=== PATIENT | male | born 1995 | race Caucasian/White ===

== ENCOUNTER 2017-05-06 12:51 | Emergency (ER) | payer BC ==
[~2017-05-06] VITALS: Ht 180.3 cm; Wt 69.2 kg
[2017-05-06 12:53] VITALS: TEMP 36.7; Ht 180.3 cm; Wt 69.2 kg
[2017-05-06] MEDS ORDERED: SODIUM CHLORIDE 0.9% 1000ML 1,000 ML IV STA (13:07)
[2017-05-06] MEDS ORDERED: ONDANSETRON INJ 2 MG/ML 2 ML VIAL IV STA (13:07)
[2017-05-06] MEDS ORDERED: KETOROLAC TROMETHAMINE 30 MG/ML VIAL IV STA (13:07)
--- NOTE | 2017-05-06 13:07 | EMERGENCY ROOM VISIT NOTE ---
History Report prepared by Binibchapis: Calli Hargrove Under the Supervision of: Dr. Lito Perez M.D. First contact with patient: 12:56 Chief Complaint: VOMITING Stated Complaint: VOMITING FOR 3 DAYS Nursing Triage Summary: vomiting started sunday night headache no diarrhea History of Present Illness The patient is a 22 year old white male with a limited past medical history of who presents to the ED with a cc of persistent vomiting beginning 3 days LIQUEFIED [employer]ROLE[employer] GASF[employer]. Positive headache, nausea, abdominal pain. Negative cough, diarrhea, urinary symptoms, recent sick contacts, recent falls. He has eaten no strange or unusual foods recently. His last BM was yesterday and normal. He has been trying to stay hydrated but admits he hasn't been tolerating PO intake well because of his symptoms. The patient notes he was in [place] for spring, and came home just over 1 week ago. He admits to drinking large amounts of alcohol while he was on [place], but states he has not drank since he's been home. Source of History: patient Onset: 3 days LIQUEFIED [employer]ROLE[employer] Position: abdomen Timing: other (persistent) Associated Symptoms: + headache, + nausea, + abdominal pain, No cough, No diarrhea, No urinary symptoms Review of Systems See HPI for pertinent positives and negatives. A total of ten systems were reviewed and were otherwise negative. Past Medical & Surgical Medical Problems: (1) No significant past medical history Social History Smoking Status: Never Smoker Alcohol Use: occasionally Drug Use: none Marital Status: single Housing Status: lives with roommate Occupation Status: [employer] student Current/Historical Medications Scheduled Famotidine (Pepcid), 20 MG PO BID Scheduled PRN Ondansetron Hcl (Zofran), 4 MG PO Q8H PRN for Nausea Allergies Coded Allergies: No Known Allergies (Unverified , 05/06/17) Physical Exam Vital Signs Date Time Temp Pulse Resp B/P (MAP) Pulse Ox O2 Delivery O2 Flow Rate FiO2 05/06/17 14:35 46 20 123/73 97 Room Air 05/06/17 12:53 36.7 54 20 151/88 95 Room Air Physical Exam GENERAL: Awake, alert, well-appearing, NAD, noted hoarse voice HENT: Normocephalic, atraumatic. Dry mucous membranes. EYES: Normal conjunctiva. Sclera non-icteric. NECK: Supple. No nuchal rigidity. FROM. RESPIRATORY: CTAB, no rhonchi, wheezing, crackles CARDIAC: RRR, no MRG ABDOMEN: Soft, NTND, BS+ MSK: No chest wall TTP, no LE edema NEURO: GCS 15, CN 2-12 intact, moves all 4s on command SKIN: No rash or jaundice noted. Medical Decision & Procedures Laboratory Results 05/06/17 13:17 Red Blood Count 5.41, Mean Corpuscular Volume 88.2, Mean Corpuscular Hemoglobin 31.6, Mean Corpuscular Hemoglobin Concent 35.8, Mean Platelet Volume 9.2, Neutrophils (%) (Auto) 70.4, Lymphocytes (%) (Auto) 16.5, Monocytes (%) (Auto) 12.1, Eosinophils (%) (Auto) 0.6, Basophils (%) (Auto) 0.2, Neutrophils # (Auto ) 7.03, Lymphocytes # (Auto) 1.65, Monocytes # (Auto) 1.21, Eosinophils # (Auto ) 0.06, Basophils # (Auto) 0.02 05/06/17 13:17 Test 05/06/17 13:11 05/06/17 13:17 05/06/17 14:05 Urine Color YELLOW Urine Appearance CLEAR (CLEAR) Urine pH 6.5 (4.5-7.5) Urine Specific [place] 1.011 (1.000-1.030) Urine Protein 1+ (NEG) Urine Glucose (UA) NEG (NEG) Urine Ketones TRACE (NEG) Urine Occult Blood NEG (NEG) Urine Nitrite NEG (NEG) Urine Bilirubin NEG (NEG) Urine Urobilinogen POS (NEG) Urine Leukocyte Esterase NEG (NEG) Urine WBC (Auto) 1-5 /hpf (0-5) Urine RBC (Auto) 0-4 /hpf (0-4) Urine Hyaline Casts (Auto) 0 /lpf (0-5) Urine Epithelial Cells (Auto) 5-10 /lpf (0-5) Urine Bacteria (Auto) NEG (NEG) White Blood Count 9.99 K/uL (4.8-10.8) Red Blood Count 5.41 M/uL (4.7-6.1) Hemoglobin 17.1 g/dL (14.0-18.0) Hematocrit 47.7 % (42-52) Mean Corpuscular Volume 88.2 fL (80-100) Mean Corpuscular Hemoglobin 31.6 pg (25-34) Mean Corpuscular Hemoglobin Concent 35.8 g/dl (32-36) Platelet Count 232 K/uL (130-400) Mean Platelet Volume 9.2 fL (7.4-10.4) Neutrophils (%) (Auto) 70.4 % Lymphocytes (%) (Auto) 16.5 % Monocytes (%) (Auto) 12.1 % Eosinophils (%) (Auto) 0.6 % Basophils (%) (Auto) 0.2 % Neutrophils # (Auto) 7.03 K/uL (1.4-6.5) Lymphocytes # (Auto) 1.65 K/uL (1.2-3.4) Monocytes # (Auto) 1.21 K/uL (0.11-0.59) Eosinophils # (Auto) 0.06 K/uL (0-0.5) Basophils # (Auto) 0.02 K/uL (0-0.2) RDW Standard Deviation 39.5 fL (36.4-46.3) RDW Coefficient of Variation 12.5 % (11.5-14.5) Immature Granulocyte % (Auto) 0.2 % Immature Granulocyte # (Auto) 0.02 K/uL (0.00-0.02) Anion Gap 8.0 mmol/L (3-11) Est Creatinine Clear Calc Drug Dose 83.4 ml/min Estimated GFR () 85.0 Estimated GFR (Non- 73.3 BUN/Creatinine Ratio 8.1 (10-20) Calcium Level 9.5 mg/dl (8.5-10.1) Total Bilirubin 0.8 mg/dl (0.2-1) Direct Bilirubin 0.2 mg/dl (0-0.2) Aspartate Amino Transf (AST/SGOT) 22 U/L (15-37) Alanine Aminotransferase (ALT/SGPT) 25 U/L (12-78) Alkaline Phosphatase 89 U/L (45-117) Total Protein 8.1 gm/dl (6.4-8.2) Albumin 4.1 gm/dl (3.4-5.0) Lipase 77 U/L (73-393) Influenza Type A Antigen Neg for Influ A (NEG) Influenza Type B Antigen Neg for Influ B (NEG) Laboratory results reviewed by me Medications Administered Medications (Trade) Dose Ordered Sig/Lety Route Start Time Stop Time Status Last Admin Dose Admin Sodium Chloride 1,000 ml @ 999 mls/hr Q1H1M STAT IV 05/06/17 13:07 05/06/17 14:07 DC 05/06/17 13:19 999 MLS/HR Ondansetron HCl (Zofran Inj) 4 mg NOW STAT IV 05/06/17 13:07 05/06/17 13:08 DC 05/06/17 13:18 4 MG Ketorolac Tromethamine (Toradol Inj) 30 mg NOW STAT IV 05/06/17 13:07 05/06/17 13:08 DC 05/06/17 13:18 30 MG Metoclopramide HCl (Reglan Inj) 10 mg NOW STAT IV. 05/06/17 14:07 05/06/17 14:08 DC 05/06/17 14:37 10 MG Diphenhydramine HCl (Benadryl Inj) 25 mg NOW STAT IV 05/06/17 14:07 05/06/17 14:08 DC 05/06/17 14:37 25 MG ED Course 1259: The patient was evaluated in room B2. A complete history and physical exam was performed. 1405: I reevaluated the patient. He is feeling better somewhat better but is still nauseous. We will administer more medications. 1440: I reevaluated the patient. He is feeling better and is ready to go home. I discussed his results and discharge instructions and he verbalized complete understanding and agreement. Medical Decision The patient is a 22 year old white male with a limited past medical history of who presents to the ED with a cc of persistent vomiting beginning 3 days LIQUEFIED [employer]. Triage Nursing notes reviewed. The patient's presentation and history were concerning for nausea, vomiting and abdominal pain. Differential diagnosis: Etiologies such as gastroenteritis, food borne illness, infections, appendicitis , diverticulitis, inflammatory bowel disease, obstruction, GI bleed, biliary pathology, as well as others were entertained. Patient was seen and evaluated the bedside. Patient had been complaining of some nausea, and vomiting. This has been persistent ongoing for approximately 3 days. Of note the patient did have a recent travel to [place] over spring. Patient had had alcohol during that time. No recent alcohol use. Patient denies any tobacco or drug use. Patient denies any foodborne illness and no trauma. Patient was complained of some mild headache but has a nonfocal neurologic exam and no signs of meningismus. I do not believe he needs an LP or CT of the brain at this time. Patient does not have any abdominal discomfort just not just nausea. Patient did have blood work completed along with symptom control. Patient's blood work fairly unremarkable. Patient does not have an elevated white blood cell count. Patient is not anemic. Patient has normal kidney function. Patient has normal LFTs and lipase. Urinalysis negative for infection. Upon reassessment the patient was feeling mildly improved. Patient was given additional medications for nausea. Patient was also given a p.o. challenge. Patient was able to tolerate his p.o. Patient did have a flu swab which is negative. Given the aforementioned there may be some gastritis. Flu negative. Patient was counseled on a bland diet, clear liquids, avoidance of alcohol, small portions, advancing his diet as tolerated, and avoiding spicy and citrus. Patient is a suitable for outpatient follow-up and treatment at this time. Patient was given strict follow-up, discharge, and return precautions. All questions were answered. Patient was deemed suitable for outpatient follow-up at this time. Patient agreed with the plan of care and was safely discharged home. Medication Reconcilliation Current Medication List: was personally reviewed by me Blood Pressure Screening Patient's blood pressure: Elevated blood pressure Blood pressure disposition: Elevated BP felt to be situational Impression Primary Impression: Vomiting Additional Impressions: Acute gastritis Hypokalemia Scribe Attestation The scribe's documentation has been prepared under my direction and personally reviewed by me in its entirety. I confirm that the note above accurately reflects all work, treatment, procedures, and medical decision making performed by me. Departure Information Dispostion Home / Self-Care Prescriptions Ondansetron Hcl (ZOFRAN) 4 Mg Tab 4 MG PO Q8H Y for Nausea, #15 TAB Prov: Lito Perez M.D. 05/06/17 Famotidine (PEPCID) 20 Mg Tab 20 MG PO BID for 7 Days, #14 TAB Prov: Lito Perez M.D. 05/06/17 Referrals No Doctor, Assigned (PCP) Patient Instructions Dehydration, ED Diet [place], ED PUD Vs Gastritis, Hypokalemia Alfredo, My [facility] Additional Instructions Please return to the emergency department if you have worsening or recurrent symptoms not amenable to at-home treatment. Please call for a follow-up appointment with her primary care physician. Please take your medications as prescribed. If you have other concerns and/or complaints please feel free to also call your primary care physician's office or return the ED for further evaluation, management, and treatment. He was please consider taking a Pepcid 20 mg twice daily. Please consider smaller meals. Please also consider a bland diet and avoiding things like spicy or citrus foods. Please avoid alcohol. Advance her diet as tolerated. Please follow-up at [facility] or with your PCP as needed. Return to the emergency department if you have worsening symptoms. You have been examined and treated today on an emergency basis only. This is not a substitute for, or an effort to provide, complete comprehensive medical care. It is impossible to recognize and treat all injuries or illnesses in a single emergency department visit. It is therefore important that you follow up closely with [facility], your PCP, and/or your specialist(s). Call as soon as possible for an appointment. Thank you for your time and consideration. I look forward to speaking with you again soon. Please don't hesitate to call us if you have any questions. Problem Qualifiers Primary Impression: Vomiting Vomiting type: unspecified Vomiting Intractability: non-intractable Nausea presence: with nausea Qualified Codes: R11.2 - Nausea with vomiting, unspecified Additional Impressions: Acute gastritis Gastritis type: unspecified gastritis Gastritis bleeding: presence of bleeding unspecified Qualified Codes: K29.00 - Acute gastritis without bleeding
[2017-05-06 13:44] LABS: BASO % 0.2 %; BASO ABS # 0.02 K/uL (0-0.2); EOS % 0.6 %; EOS ABS # 0.06 K/uL (0-0.5); HEMATOCRIT 47.7 % (42-52); HEMOGLOBIN 17.1 g/dL (14.0-18.0); IG# 0.02 K/uL (0.00-0.02); LYMPH % 16.5 %; LYMPH ABS # 1.65 K/uL (1.2-3.4); MEAN CELL VOLUME 88.2 fL (80-100); MEAN CORPUSCULAR HEMOGLOBIN 31.6 pg (25-34); MEAN CORPUSCULAR HGB CONC 35.8 g/dl (32-36); MEAN PLATELET VOLUME 9.2 fL (7.4-10.4); MONO % 12.1 %; MONO ABS # 1.21 K/uL (0.11-0.59); NEUT % 70.4 %; NEUT ABS # 7.03 K/uL (1.4-6.5); PLATELET COUNT 232 K/uL (130-400); RED CELL DISTRIBUTION WIDTH CV 12.5 % (11.5-14.5); RED CELL DISTRIBUTION WIDTH SD 39.5 fL (36.4-46.3); WHITE BLOOD COUNT 9.99 K/uL (4.8-10.8)
[2017-05-06 13:52] LABS: ALBUMIN 4.1 gm/dl (3.4-5.0); CALCIUM 9.5 mg/dl (8.5-10.1); CREATININE 1.36 mg/dl (0.60-1.40); POTASSIUM 3.3 mmol/L (3.5-5.1)
[2017-05-06 13:55] LABS: TOTAL PROTEIN 8.1 gm/dl (6.4-8.2)
[2017-05-06] MEDS ORDERED: DiphenhydrAMINE HCL 50 MG/ML VIAL IV STA (14:07)
[2017-05-06] MEDS ORDERED: METOCLOPRAMIDE HCL INJ 5 MG/ML 2 ML VIAL IV. STA (14:07)
[2017-05-06] MEDS ORDERED: ONDA4TAB46 PO (14:28)
[2017-05-06] MEDS ORDERED: FAMO20TA9 PO (14:28)
[2017-05-06 14:58] LABS: INFLUENZA B ANTIGEN Neg for Influ B (NEG)
[2017-05-06 15:14] VITALS: BP 118/64; PULSE 45; O2SAT 98
[2017-05-06] MEDS ORDERED: ONDANSETRON HOME PACK 4MG OD TAB PO ONE (15:15)
== END 2017-05-06 15:26 | disposition home or self-care (01) ==
LOC: C.EDB 12:54
DX: K29.00 Acute gastritis without bleeding (principal); E87.6 Hypokalemia; R51 Headache